=== PATIENT | female | born 1975 | race Two or more races ===

== ENCOUNTER 2025-04-08 12:38 | Emergency (ER) | payer MEDICARE, MEDICAID, SELFPAY ==
[2025-04-08 12:45] VITALS: BP 108/72; PULSE 99; RESP 22; TEMP 37.2; O2SAT 95; BMI 47.0
--- NOTE | 2025-04-08 12:49 | PD.EDRME ---
Rapid Medical Screening Exam RME Arrival date/time: 04/08/25 12:38 49-year-old female with history of nephrostomy came in in the emergency room due to abdominal pain radiating to left flank patient states that it is hurting inside with painful urination nausea and vomiting for 2-day Chief Complaint: Urogenital-Female Time Seen by Provider: 04/08/25 12:41 Vital signs: Vital Signs Temperature 99.0 F 04/08/25 12:45 Pulse Rate 99 04/08/25 12:45 Respiratory Rate 22 H 04/08/25 12:45 Blood Pressure 108/72 04/08/25 12:45 Pulse Oximetry (%) 95 04/08/25 12:45 Oxygen Delivery Method Room Air 04/08/25 12:45 Exam: Mild tenderness on both lower abdomen no guarding no rebound noted Clinical Impression: flank pain
[2025-04-08 13:29] LABS: Basophils # (Auto) 0.0 Thou/mm3 (0.0-0.2); Basophils % (Auto) 0 % (0-2.5); Eosinophils # (Auto) 0.1 Thou/mm3 (0.0-0.5); Eosinophils % (Auto) 1 % (0-10); Hematocrit 30.0 % (36.0-46.0); Hemoglobin 9.2 g/dL (12.0-16.0); Immature Granulocytes Auto 0.07 Thou/mm3 (0.00-0.00); Lymphocytes # (Auto) 1.9 Thou/mm3 (1.0-4.8); Lymphocytes % (Auto) 20 % (10-50); Mean Corpuscular HGB Conc 30.7 g/dl (31.0-37.0); Mean Corpuscular Hemoglobin 30.4 pg (25.0-35.0); Mean Corpuscular Volume 99 fL (80-100); Monocytes # (Auto) 0.6 Thou/mm3 (0.0-0.8); Monocytes % (Auto) 6 % (0-12); Neutrophils # (Auto) 6.9 Thou/mm3 (1.8-7.7); Neutrophils % (Auto) 72 % (37-80); Nucleated Red Blood Cell # 0.00 Thou/mm3 (0.00-0.00); Nucleated Red Blood Cell % 0 /100 WBC (0); Platelet Count 171 Thou/mm3 (140-440); RDW Standard Deviation 52.9 fL (36.4-46.3); Red Blood Count 3.03 Miln/mm3 (4.00-5.20); White Blood Count 9.6 Thou/mm3 (3.6-11.0)
--- NOTE | 2025-04-08 13:37 | PC.NURSE ---
Pt. refused medication stating she already threw up and Tylenol will do nothing for her, pt. states she takes Oxycodone but forgot it at home. Informed [facility].
[2025-04-08 13:58] LABS: Alanine Aminotransferase 10 U/L (10-49); Albumin, Serum 4.0 gm/dL (3.5-5.0); Albumin/Globulin Ratio 0.8 (1.2-2.2); Alkaline Phosphatase 156 U/L (46-116); Anion Gap 11 (7-16); Aspartate Amino Transferase 23 U/L (0-34); BUN/Creatinine Ratio 7 Ratio (12-20); Bilirubin,Total 4.2 mg/dL (0.3-1.2); Blood Urea Nitrogen 7 mg/dL (9-23); Calcium 9.3 mg/dL (8.3-10.6); Calcium (Corrected) 9.3 mg/dL (8.5-10.1); Carbon Dioxide 24.8 mMol/L (20.0-31.0); Chloride 104 mMol/L (98-107); Creatinine (Component) 1.0 mg/dL (0.6-1.3); Estimated Creatinine Clearance 72.5 mL/min (>60); Globulin 5.1 gm/dL (2.3-3.5); Glucose 135 mg/dL (74-106); Lipase 24 U/L (12-53); Osmolality,Calculated 279 (275-295); Potassium 3.6 mMol/L (3.4-5.1); Sodium 140 mMol/L (136-145); Total Protein 9.1 gm/dL (5.7-8.2); eGFR > 60 See Note
[2025-04-08 16:56] LABS: Collection Type, Urine Clean Catch
[2025-04-08 17:08] LABS: Bacteria,Urine Rare; Bilirubin,Urine Negative (Negative); Blood,Urine 1+ (Negative); Clarity,Urine Turbid (Clear/Hazy); Color,Urine Yellow (Lt Yel-Yel); Glucose, Urine Negative (Negative); Ketones,Urine Negative (Negative); Leukocyte Esterase,Urine Positive (Negative); Nitrite,Urine Negative (Negative); PH,Urine 8.0 (5.0-7.0); Protein,Urine 2+ (Neg - Trace); RBC,Urine 9 /hpf (0-3); Specific Gravity,Urine 1.011 (1.001-1.035); Squamous Epithelial Cell,Urine < 1 /hpf (0-5); Urobilinogen,Urine Negative mg/dL (0.0-1.0); WBC,Urine 3 /hpf (0-5)
[2025-04-08 17:20] LABS: HCG Qualitative,Urine Negative
--- NOTE | 2025-04-08 20:06 | PC.NURSE ---
PT WAS CALLED FOR CT SCAN N/A 1936,194, 2004.
--- NOTE | 2025-04-08 20:25 | PC.NURSE ---
PT ELOPED THE ER N/A 1936,1945, 2004
== END 2025-04-08 20:26 | disposition left against medical advice (07) ==
PROVIDERS: Nurse Practitioner Family; Emergency Provider Family Medicine
DX: R10.A2 Flank pain, left side (principal); Z53.29 Procedure and treatment not carried out because of patient's decision for other reasons
CPT/HCPCS: 36415; 80053; 81001; 81025; 83690; 85025; 99282